=== PATIENT | male | born 1980 | race Caucasian/White ===

== ENCOUNTER 2018-08-14 09:42 | Emergency (ER) | payer BC, OTHER ==
[2018-08-14 09:49] VITALS: BP 120/83
--- NOTE | 2018-08-14 10:10 | ED ---
Headache - HPI Summary HPI Summary: This is a 37-year-old man, in generally good health, presents with a 2 day history of frontal headache. He tells me that his symptoms were present to a mild degree on awakening yesterday, but worsened gradually over the course of the morning. He did not feel well enough to go to work so went home and actually slept for most the day. Today he says the headache is improving. There has been some associated "head cold" symptoms over the past week or 2, with nasal congestion. There has been no fever. There has been some nasal drainage as well. He has had some accompanying symptoms of a "head mills" when he turns quickly, or bends to pick something over. There have been no other focal neurologic symptoms or signs. - History Of Current Complaint Chief Complaint: EDHeadache Stated Complaint: FEELS LIKE SOMETHING IS TRYING TO PUSH OUT OF HEAD Time Seen by Provider: 08/14/18 10:01 - Allergies/Home Medications Allergies/Adverse Reactions: Allergies Allergy/AdvReac Type Severity Reaction Status Date / Time No Known Allergies Allergy Verified 08/14/18 09:49 Home Medications: Home Medications Cetirizine HCl [Zyrtec] 10 mg PO DAILY 08/14/18 [History Confirmed 08/14/18] Loratadine [Claritin] 10 mg PO DAILY 08/14/18 [History Confirmed 08/14/18] PMH/Surg Hx/FS Hx/Imm Hx Respiratory History: Reports: Hx Seasonal Allergies Infectious Disease History: No Infectious Disease History: Denies: Traveled Outside the [place] in Last 30 Days Review of Systems Positive: Fatigue. Negative: Fever, Chills Negative: Photophobia, Blurred Vision, Diplopia, Drainage, Erythema Positive: Nasal Discharge. Negative: Sore Throat, Ear Ache Cardiovascular: Negative Respiratory: Negative Negative: Vomiting All Other Systems Reviewed And Are Negative: Yes Physical Exam - Summary Physical Exam Summary: General: This is a well-developed, well- nourished man sitting on the stretcher in no apparent distress. The patient does not appear ill or toxic. HEENT:Extraocular movements are intact. Conjunctiva are normal without pallor. Pharynx is clear without exudate or swelling. Dentition is unremarkable. There is no sign of head trauma. There is mild tenderness to percussion of the frontal sinuses. The tympanic membranes are translucent, but a normal light reflex was not seen. Neck: Supple, no adenopathy noted. Lungs: Lungs are clear to auscultation. There are no signs of respiratory distress. Coronary: Peripheral perfusion is good. Heart sounds are regular, a normal S1 and S2 were auscultated. There is no gallop rhythm, nor any pathological sounded murmurs. Abdomen: The abdomen appears normal and is nondistended. Genitourinary: Deferred Back: Good range of motion is observed. There are no surface abnormalities nor any scoliosis. Extremities: Good range of motion was observed in all 4 extremities. There is no sign of any trauma to the extremities. Neurologic: The patient is awake and alert, speech is fluent in conversation is appropriate. There are no focal motor abnormalities. Cranial nerves are grossly intact. There is no ataxia observed. Psychiatric. The patients affect is felt to be normal and appropriate. There is no sign of any hallucinations or delusions, or any other signs of psychosis. Vital Signs On Initial Exam: Initial Vitals Temp Pulse Resp BP Pulse Ox 36.1 C 82 16 120/83 98 08/14/18 09:46 08/14/18 09:46 08/14/18 09:46 08/14/18 09:46 08/14/18 09:46 Diagnostics - Vital Signs Vital Signs Temp Pulse Resp BP Pulse Ox 08/14/18 09:46 36.1 C 82 16 120/83 98 - Laboratory Lab Statement: Any lab studies that have been ordered have been reviewed, and results considered in the medical decision making process. Headache Course/Dx - Diagnoses Provider Diagnoses: Sinus headache Discharge - Sign-Out/Discharge Documenting (check all that apply): Patient Departure - Discharge Plan Condition: Good Disposition: HOME Prescriptions: Amoxicillin/Clavulanate TAB* [Augmentin TAB 875*] 875 mg PO BID #20 tab Patient Education Materials: Sinusitis (ED), Acute Headache (ED) Referrals: Daljit Ersnt MD [Primary Care Provider] - 4 Days (if not improving) Additional Instructions: The antibiotic should take care of most of the bacterial causes of a sinus infection, which is what I suspect is causing your symptoms. Decongestants, like what you take for your allergies, can sometimes help as well. A sinus rinse (like nedi pot) is also helpful to many people and would be ok to try also. The discharge instructions are useful to read as they list things to monitor in terms of whether you need to be seen back. - Billing Disposition and Condition Condition: GOOD Disposition: Home - Attestation Statements Document Initiated by Scribe: No
== END 2018-08-14 10:28 | disposition home or self-care (01) ==
LOC: ED 09:42
DX: J32.9 Chronic sinusitis, unspecified (principal)
CPT/HCPCS: 99282